=== PATIENT | male | born 1990 | race Caucasian/White ===

== ENCOUNTER 2022-09-15 18:10 | Emergency (ER) | payer BC ==
[2022-09-15] MEDS: HYDROmorphone 0.5 MG/0.5 ML Syringe IVPUSH ONE ×2 (18:55→19:17)
[2022-09-15] MEDS: Ondansetron 4 MG/2 ML SDV IVPUSH STA (18:55)
[2022-09-15] MEDS: Erythromycin Base 0.5% Ophth Oint 3.5 GM Tube EYERT ONE (19:34)
[2022-09-19] MEDS ORDERED: Sodium Chloride 0.9% 1,000 ML SCH (08:30)
== END 2022-09-15 19:50 ==
LOC: CC.ED 18:10
DX: T15.91XA Foreign body on external eye, part unspecified, right eye, initial encounter (principal); S05.31XA Ocular laceration without prolapse or loss of intraocular tissue, right eye, initial encounter; S05.8X1A Other injuries of right eye and orbit, initial encounter
CPT/HCPCS: 96374; 96375; 99284; 99284-25; A9270-GY; J1170; J2405; J7030